=== PATIENT | female | born 1955 ===

== ENCOUNTER 2018-05-30 13:11 | Emergency (ER) | payer MEDICARE ==
[2018-05-30 13:11] VITALS: BMI 17.9
--- NOTE | 2018-05-30 13:43 | C.PDOC ---
History Of Present Illness 62 Y/O FEMALE PRESENTS TO ED WITH C/O RECURRENT, WORSENING L CP SINCE LAST NIGHT. PS 1ST EPISODE 1 MO AGO, RESOLVED. CURRENT EPISODE ONSET LAST NIGHT, MORE PROLONGED AND INTENSE THAN PRIOR. CP IMPROVED COMPARED TO LAST NIGHT BUT PERSISTENT. PATIENT ADMITS TO NAUSEA, VOMITING AND DIZZINESS, NAUSEA. HO AORTIC STENOSIS, S/P CATH 2015 DR ZEPEDA. EXAM MILD DIST NONTOXIC EXAM NEG MDM REPORT CATH 11/02 REVIEWED. UNSTABLE ANGINA W ABN EKG. VSS. LABS, ANTICOAG, ASA , CARDIOLOGY CONSULT, ADMIT Time Seen by Provider: 05/30/18 13:37 Chief Complaint (Nursing): Chest Pain History Per: Patient History/Exam Limitations: no limitations Onset/Duration Of Symptoms: Days Current Symptoms Are (Timing): Still Present Past Medical History Reviewed: Historical Data, Nursing Documentation, Vital Signs Vital Signs: Last Vital Signs Temp 98.5 F 05/30/18 13:18 Pulse 89 05/30/18 14:40 Resp 19 05/30/18 14:40 BP 120/81 05/30/18 14:40 Pulse Ox 99 05/30/18 15:44 - Medical History PMH: Anxiety (ABOUT PROCEDURE), Arthritis, Hypercholesterolemia, Hypothyroidism , Kidney Stones (PASSED NO SURGERY) Surgical History: No Surg Hx Family History: States: No Known Family Hx - Social History Hx Alcohol Use: No Hx Substance Use: No - Immunization History Hx Tetanus Toxoid Vaccination: No Hx Influenza Vaccination: No Hx Pneumococcal Vaccination: No Review Of Systems Constitutional: Negative for: Fever, Chills Cardiovascular: Positive for: Chest Pain Gastrointestinal: Positive for: Nausea, Vomiting Neurological: Positive for: Dizziness Physical Exam - Physical Exam Appears: Non-toxic, Other (In mild distress) Skin: Warm, Dry, No Rash Head: Atraumatic, Normacephalic Eye(s): bilateral: Normal Inspection Neck: Normal ROM, Supple Cardiovascular: Rhythm Regular Respiratory: Normal Breath Sounds, No Rales, No Rhonchi, No Wheezing Gastrointestinal/Abdominal: Soft, No Tenderness, No Guarding, No Rebound Extremity: No Pedal Edema, Capillary Refill (<2 seconds) Neurological/Psych: Oriented x3, Normal Speech ED Course And Treatment - Laboratory Results Result Diagrams: 05/30/18 13:56 05/30/18 13:56 ECG: Interpreted By Me ECG Rhythm: Sinus Rhythm ECG Interpretation: Abnormal Interpretation Of ECG: ST DEPRESSION I, AVL, V2-V6 Rate From EC (BPM) O2 Sat by Pulse Oximetry: 99 (RA) Pulse Ox Interpretation: Normal Progress - Re-Evaluation Re-evaluation Note: 05/30/18 13:51 D/W DR ZEPEDA, EKG REVIEWED. MILLINOX, ECHO, WILL CONSULT 05/30/18 14:[address] ZEPEDA REQUESTING ADMISSION TO Mary MARTINEZ 05/30/18 14:45 D/W DR Mary MARTINEZ, WILL ADMIT 05/30/18 14:50 EKG #2: CP RESOLVED. PERSIST ST DEP V4-6, I, AVL. VSS 05/30/18 15:14 D/W DR ZEPEDA, AWARE OF TROP. ICU EVAL. DOES NOT ADVISE ADDL MEDS @ THIS TIME 05/30/18 15:[address] Traci MARTINEZ C/F ICU 05/30/18 15:43 d/w dr traci martinez AWARE OF ER FINDINGS, ACCEPTS FOR ICU. - Data Reviewed Data Reviewed: Lab, Diagnostic imaging, EKG - Critical Care Citical Care: Excluding Proc Time Critical Care Time: 90 minutes - Continuity of Care Discussed pt. case with food consultant/specialty: Cardiology Medical Decision Making Medical Decision Making: REPORT CATH 11/02 REVIEWED. UNSTABLE ANGINA W ABN EKG. VSS. LABS, ANTICOAG, ASA , CARDIOLOGY CONSULT, ADMIT Disposition Counseled Patient/Family Regarding: Studies Performed, Diagnosis - Disposition Disposition: HOSPITALIZED Disposition Time: 14:46 Condition: STABLE - POA Present On Arrival: Poor Glycemic Control - Clinical Impression Clinical Impression: Unstable angina, Abnormal EKG, Aortic stenosis - Scribe Statement The provider has reviewed the documentation as recorded by the Tristin Llamas All medical record entries made by the Sadafibe were at my direction and personally dictated by me. I have reviewed the chart and agree that the record accurately reflects my personal performance of the history, physical exam, medical decision making, and the department course for this patient. I have also personally directed, reviewed, and agree with the discharge instructions and disposition. Decision To Admit - Pt Status Changed To: Hospital Disposition Of: Inpatient - Admit Certification Admit to Inpatient:: After my assessment, the patient will require hospitalization for at least two midnights. This is because of the severity of symptoms shown, intensity of services needed, and/or the medical risk in this patient being treated as an outpatient. - InPatient: Physician Admission Certification: I certify that this patient requires 2 or more midnights of care for the following reason:: SEE NOTE - . Bed Request Type: ICU Admitting Physician: Мария Martinez Patient Diagnosis: Unstable angina, Abnormal EKG, Aortic stenosis
[2018-05-30] MEDS ORDERED: Aspirin 325 mg EC Tablets PO STA (13:48)
[2018-05-30] MEDS ORDERED: Enoxaparin 40 mg Syringe SC STA (13:57)
[2018-05-30 14:11] LABS: BASO # 0.1 K/uL (0.0-0.2); BASO % 0.3 % (0.0-2.0); HEMOGLOBIN 14.1 g/dL (11.0-16.0); LYMPH # 2.7 K/uL (1.0-4.3); LYMPH % 15.1 % (20.0-40.0); MEAN CELL VOLUME 98.6 fL (81.0-99.0); MEAN CORPUSCULAR HEMOGLOBIN 33.6 pg (27.0-31.0); MEAN CORPUSCULAR HGB CONC 34.1 g/dL (33.0-37.0); MEAN PLATELET VOLUME 8.8 fL (7.2-11.7); MONO % 5.5 % (0.0-10.0); NEUT % 79.1 % (50.0-75.0); NRBC % 0.1 % (0.0-2.0); RBC 4.21 Mil/uL (3.80-5.20); RED CELL DISTRIBUTION WIDTH 14.2 % (11.5-14.5); WHITE BLOOD COUNT 17.7 K/uL (4.8-10.8)
[2018-05-30] MEDS ORDERED: Enoxaparin 60 mg Syringe ONE (14:12)
[2018-05-30 14:14] LABS: INR 1.1; PROTHROMBIN TIME 12.1 SECONDS (9.7-12.2)
[2018-05-30 14:27] LABS: ALB/GLOB RATIO 0.8 (1.0-2.1); ALBUMIN 4.2 g/dL (3.5-5.0); CALCIUM 9.5 mg/dl (8.6-10.4)
--- NOTE | 2018-05-30 14:36 | RAD ---
Date of service: 05/30/2018 PROCEDURE: CHEST RADIOGRAPH, 1 VIEW HISTORY: chest pain COMPARISON: None available. FINDINGS: LUNGS: The lungs are well inflated. There are diffuse increased streaky opacities in the lungs. No focal consolidation. There is bibasilar atelectasis. PLEURA: No pneumothorax or pleural fluid seen. CARDIOVASCULAR: Normal. OSSEOUS STRUCTURES: No significant abnormalities. VISUALIZED UPPER ABDOMEN: Normal. OTHER FINDINGS: None. IMPRESSION: No active pulmonary disease. Findings may represent atypical/ viral pneumonitis or interstitial disease.
[2018-05-30 14:41] VITALS: RESP 19
--- NOTE | 2018-05-30 15:56 | CP.PCM.CON ---
History of Present Illness - History of Present Illness History of Present Illness: 62 y/o female with pmx of Dm, CAd presents to [facility] with c/o chest pain. Patient's chest pain improved with nitroglycerin. Patient being followed with mechanical engineering director. Past Patient History - Past Medical History & Family History Past Medical History?: Yes - Past Social History Smoking Status: Never Smoked - CARDIAC Hx Hypercholesterolemia: Yes - PULMONARY Hx Respiratory Disorders: No - NEUROLOGICAL Hx Neurological Disorder: No - HEENT Hx HEENT Problems: Yes (GLASSES) Hx Cataracts: Yes - RENAL Hx Kidney Stones: Yes (PASSED NO SURGERY) - ENDOCRINE/METABOLIC Hx Hypothyroidism: Yes - HEMATOLOGICAL/ONCOLOGICAL Hx Blood Disorders: No - INTEGUMENTARY Hx Dermatological Problems: No - MUSCULOSKELETAL/RHEUMATOLOGICAL Hx Arthritis: Yes - GASTROINTESTINAL Hx Gastrointestinal Disorders: No - GENITOURINARY/GYNECOLOGICAL Hx Genitourinary Disorders: Yes Hx Hematuria: Yes Other/Comment: KIDNEY STONE - PSYCHIATRIC Hx Anxiety: Yes (ABOUT PROCEDURE) Hx Substance Use: No - SURGICAL HISTORY Hx Surgeries: Yes Other/Comment: OVARIAN CYSTECTOMY - ANESTHESIA Hx Anesthesia: Yes Hx Anesthesia Reactions: No Hx Malignant Hyperthermia: No Meds Allergies/Adverse Reactions: Allergies Allergy/AdvReac Type Severity Reaction Status Date / Time No Known Allergies Allergy Verified 05/30/18 13:21 - Medications Medications: Current Medications Nitroglycerin (Nitrostat Sl Tab) 0.4 mg SL Q5M PRN PRN Reason: CHEST PAIN Last Admin: 05/30/18 14:25 Dose: 0.4 mg Physical Exam - Head Exam Head Exam: ATRAUMATIC, NORMAL INSPECTION, NORMOCEPHALIC - Eye Exam Eye Exam: EOMI Pupil Exam: NORMAL ACCOMODATION - ENT Exam ENT Exam: Mucous Membranes Moist - Respiratory Exam Respiratory Exam: NORMAL BREATHING PATTERN - Cardiovascular Exam Cardiovascular Exam: REGULAR RHYTHM, +S1, +S2 - GI/Abdominal Exam GI & Abdominal Exam: Normal Bowel Sounds - Extremities Exam Extremities exam: Positive for: normal inspection - Neurological Exam Neurological exam: Alert, Oriented x3 - Skin Skin Exam: Normal Color Results - Vital Signs Recent Vital Signs: Last Vital Signs Temp 98.5 F 05/30/18 13:18 Pulse 89 05/30/18 14:40 Resp 19 05/30/18 14:40 BP 120/81 05/30/18 14:40 Pulse Ox 99 07/13/18 15:49 - Labs Result Diagrams: 05/30/18 13:56 05/30/18 13:56 Labs: Laboratory Results - last 24 hr 05/30/18 05/30/18 05/30/18 13:56 13:56 13:56 WBC 17.7 H RBC 4.21 Hgb 14.1 Hct 41.5 MCV 98.6 D MCH 33.6 H MCHC 34.1 RDW 14.2 Plt Count 314 MPV 8.8 Neut % (Auto) 79.1 H Lymph % (Auto) 15.1 L Osborne % (Auto) 5.5 Eos % (Auto) 0.0 Baso % (Auto) 0.3 Neut # (Auto) 14.0 H Lymph # (Auto) 2.7 Osborne # (Auto) 1.0 H Eos # (Auto) 0.0 Baso # (Auto) 0.1 PT 12.1 INR 1.1 APTT 33 Sodium 142 Potassium 5.5 H Chloride 100 Carbon Dioxide 27 Anion Gap 21 H BUN 35 H Creatinine 1.9 H Est GFR ( Amer) 33 Est GFR (Non-Af Amer) 27 Random Glucose 296 H Calcium 9.5 Total Bilirubin 0.9 AST 828 H ALT 135 H Alkaline Phosphatase 255 H Troponin I 207.0000 H* Total Protein 9.2 H Albumin 4.2 Globulin 5.0 H Albumin/Globulin Ratio 0.8 L Lipase 87 Blood Type Antibody Screen 05/30/18 13:56 WBC RBC Hgb Hct MCV MCH MCHC RDW Plt Count MPV Neut % (Auto) Lymph % (Auto) Osborne % (Auto) Eos % (Auto) Baso % (Auto) Neut # (Auto) Lymph # (Auto) Osborne # (Auto) Eos # (Auto) Baso # (Auto) PT INR APTT Sodium Potassium Chloride Carbon Dioxide Anion Gap BUN Creatinine Est GFR ( Amer) Est GFR (Non-Af Amer) Random Glucose Calcium Total Bilirubin AST ALT Alkaline Phosphatase Troponin I Total Protein Albumin Globulin Albumin/Globulin Ratio Lipase Blood Type A POSITIVE Antibody Screen Negative Assessment & Plan - Assessment and Plan (Free Text) Assessment: Patient with unstable angina: patient will benefit from urgent cardiology eval and possible early PCI -start DAPT, lovenox and statin -d/w ER physician, patient ot get PCI at [facility] [place] - Date & Time Date: 05/30/18 Time: 17:00
[2018-05-30] MEDS ORDERED: (Novolin R) Insulin Human Regular 100 units/ml vial IV STA (16:10)
[2018-05-30] MEDS ORDERED: (Novolin R) Insulin Human Regular 100 units/ml vial ONE (16:16)
[2018-05-30 17:07] VITALS: BP 113/70; PULSE 91; O2SAT 96
[2018-05-30 17:08] VITALS: TEMP 98.2
--- NOTE | 2018-05-30 17:49 | CP.PCM.CON ---
History of Present Illness - History of Present Illness History of Present Illness: Contacted by Dr Manrique at [phone] regarding patient who presents with unstable angina ST segment depression v2-v6. patient has previous history of and moderate CAD , did not have AVR as she insisted she was asymptomatic. Patient's pain reportedly improved with nitroglycerin. recommendation given for lovenox. Troponin reported to be 200, I recommended ICU eval while arrangements are made for urgent transfer to tertiary care Hospital. [place] [facility] [place] label[place] for [place] and intervention. Echocardiogram reveals mild posterobasal hypokinesis , severe calcific , and severe mitral regurgitation. Patient likely will need valve surgery. (AVR/MVR). Past Patient History - Past Medical History & Family History Past Medical History?: Yes - Past Social History Smoking Status: Never Smoked - CARDIAC Hx Hypercholesterolemia: Yes - PULMONARY Hx Respiratory Disorders: No - NEUROLOGICAL Hx Neurological Disorder: No - HEENT Hx HEENT Problems: Yes (GLASSES) Hx Cataracts: Yes - RENAL Hx Kidney Stones: Yes (PASSED NO SURGERY) - ENDOCRINE/METABOLIC Hx Hypothyroidism: Yes - HEMATOLOGICAL/ONCOLOGICAL Hx Blood Disorders: No - INTEGUMENTARY Hx Dermatological Problems: No - MUSCULOSKELETAL/RHEUMATOLOGICAL Hx Arthritis: Yes - GASTROINTESTINAL Hx Gastrointestinal Disorders: No - GENITOURINARY/GYNECOLOGICAL Hx Genitourinary Disorders: Yes Hx Hematuria: Yes Other/Comment: KIDNEY STONE - PSYCHIATRIC Hx Anxiety: Yes (ABOUT PROCEDURE) Hx Substance Use: No - SURGICAL HISTORY Hx Surgeries: Yes Other/Comment: OVARIAN CYSTECTOMY - ANESTHESIA Hx Anesthesia: Yes Hx Anesthesia Reactions: No Hx Malignant Hyperthermia: No Meds Allergies/Adverse Reactions: Allergies Allergy/AdvReac Type Severity Reaction Status Date / Time No Known Allergies Allergy Verified 05/30/18 13:21 - Medications Medications: Current Medications Nitroglycerin (Nitrostat Sl Tab) 0.4 mg SL Q5M PRN PRN Reason: CHEST PAIN Last Admin: 05/30/18 14:25 Dose: 0.4 mg Results - Vital Signs Recent Vital Signs: Last Vital Signs Temp 98.2 F 05/30/18 17:06 Pulse 91 H 05/30/18 17:06 Resp 19 05/30/18 17:06 BP 113/70 05/30/18 17:06 Pulse Ox 96 05/30/18 17:06 - Labs Result Diagrams: 05/30/18 13:56 05/30/18 13:56 Labs: Laboratory Results - last 24 hr 05/30/18 05/30/18 05/30/18 13:56 13:56 13:56 WBC 17.7 H RBC 4.21 Hgb 14.1 Hct 41.5 MCV 98.6 D MCH 33.6 H MCHC 34.1 RDW 14.2 Plt Count 314 MPV 8.8 Neut % (Auto) 79.1 H Lymph % (Auto) 15.1 L Turner % (Auto) 5.5 Eos % (Auto) 0.0 Baso % (Auto) 0.3 Neut # (Auto) 14.0 H Lymph # (Auto) 2.7 Turner # (Auto) 1.0 H Eos # (Auto) 0.0 Baso # (Auto) 0.1 PT 12.1 INR 1.1 APTT 33 Sodium 142 Potassium 5.5 H Chloride 100 Carbon Dioxide 27 Anion Gap 21 H BUN 35 H Creatinine 1.9 H Est GFR ( Amer) 33 Est GFR (Non-Af Amer) 27 POC Glucose (mg/dL) Random Glucose 296 H Calcium 9.5 Total Bilirubin 0.9 AST 828 H ALT 135 H Alkaline Phosphatase 255 H Troponin I 207.0000 H* Total Protein 9.2 H Albumin 4.2 Globulin 5.0 H Albumin/Globulin Ratio 0.8 L Lipase 87 Blood Type Antibody Screen 05/30/18 05/30/18 05/30/18 13:56 16:01 17:28 WBC RBC Hgb Hct MCV MCH MCHC RDW Plt Count MPV Neut % (Auto) Lymph % (Auto) Turner % (Auto) Eos % (Auto) Baso % (Auto) Neut # (Auto) Lymph # (Auto) Turner # (Auto) Eos # (Auto) Baso # (Auto) PT INR APTT Sodium Potassium Chloride Carbon Dioxide Anion Gap BUN Creatinine Est GFR ( Amer) Est GFR (Non-Af Amer) POC Glucose (mg/dL) 314 H 270 H Random Glucose Calcium Total Bilirubin AST ALT Alkaline Phosphatase Troponin I Total Protein Albumin Globulin Albumin/Globulin Ratio Lipase Blood Type A POSITIVE Antibody Screen Negative
[2018-05-30] MEDS ORDERED: INSULIN LISPRO SC PRN (19:51)
[2018-05-31] MEDS ORDERED: TOFACITINIB CITRATE PO SCH (10:00)
[2018-05-31] MEDS ORDERED: Levothyroxine 50 MCG TAB PO SCH (10:00)
[2018-05-31] MEDS ORDERED: INSULIN DEGLUDEC 26 UNIT SC SCH (10:00)
--- NOTE | 2018-06-01 13:37 | CARD ---
APPROVED REPORT Date of service: 05/30/2018 EXAM: Two-dimensional and M-mode echocardiogram with Doppler and color Doppler. Other Information Quality : GoodRhythm : INDICATION Abnormal EKG/Arrhythmia Aortic Valve Disease Chest Pain 2D DIMENSIONS IVSd1.0 (0.7-1.1cm)LVDd3.3 (3.9-5.9cm) LVOT Diameter1.7 (1.8-2.4cm)PWd1.0 (0.7-1.1cm) LVDs2.6 (2.5-4.0cm)FS (%) 22.9 % PWs2.5 (0.8-1.2cm)LVEF (%)65.0 (>50%) M-Mode DIMENSIONS Left Atrium (MM)3.54 (2.5-4.0cm)IVSd0.94 (0.7-1.1cm) Aortic Root2.36 (2.2-3.7cm)LVDd4.94 (4.0-5.6cm) Aortic Cusp Exc.0.96 (1.5-2.0cm)PWd0.75 (0.7-1.1cm) FS (%) 36 %LVDs3.18 (2.0-3.8cm) LVEF (%)65 (>50%) Aortic Valve AoV Peak Crmqacul880.6cm/sAoV VTI52.2cmAO Peak GR.35mmHg LVOT Peak Obrayegj11.8cm/sLVOT VTI15.03cmAO Mean GR.20mmHg BASIA (VMAX)0.96rb3TCV (VTI)0.17zr0TW P 1/2 Juyd390oj Mitral Valve MV E Anwkxgjq889.9cm/sMV A Qzyhuabm68.8cm/sE/A ratio2.0 TDI E/Lateral E'0.0E/Medial E'0.0 Tricuspid Valve TR Peak Bzofmkwf963lo/sTR Peak Gr.27mcQbMPFV50kkTk LEFT VENTRICLE The left ventricle is normal size. There is normal left ventricular wall thickness. The Ejection Fraction is 55-60%. There is normal LV segmental wall motion. Transmitral Doppler flow pattern is Grade II-pseudonormal filling dynamics. The left atrial pressure is severely elevated. RIGHT VENTRICLE The right ventricle is normal size. The right ventricular systolic function is normal. ATRIA The left atrium size is normal. The right atrium size is normal. The interatrial septum is intact with no evidence for an atrial septal defect. AORTIC VALVE The aortic valve is moderately to severely calcified. The aortic valve is probably trileaflet. There is mild to moderate aortic regurgitation. There is severe valvular aortic stenosis. Calculated aortic valve area is 0.6 cm2 with maximum pressure gradient of 37 mmHg and mean pressure gradient of 22 mmHg. MITRAL VALVE The mitral valve leaflets are calcified. Mitral regurgitation is severe. TRICUSPID VALVE The tricuspid valve is normal in structure. There is moderate tricuspid regurgitation. Right ventricular systolic pressure is estimated at 50 mmHg. There is moderate pulmonary hypertension. PULMONIC VALVE The pulmonary valve is normal in structure. There is moderate pulmonic valvular regurgitation. GREAT VESSELS The aortic root is normal size. The aortic root displays mild to moderate sclerocalcific changes of the aortic root. The IVC is normal in size and collapses >50% with inspiration. PERICARDIAL EFFUSION There is no pericardial effusion. <Conclusion> The left ventricle is normal size. There is normal left ventricular wall thickness. The Ejection Fraction is 55-60%. Transmitral Doppler flow pattern is Grade II-pseudonormal filling dynamics. The left atrial pressure is severely elevated. The aortic valve is moderately to severely calcified. The aortic valve is probably trileaflet. There is mild to moderate aortic regurgitation. There is severe valvular aortic stenosis. Calculated aortic valve area is 0.6 cm2 with maximum pressure gradient of 37 mmHg and mean pressure gradient of 22 mmHg. The mitral valve leaflets are calcified. Mitral regurgitation is severe. There is moderate tricuspid regurgitation. Right ventricular systolic pressure is estimated at 50 mmHg. There is moderate pulmonary hypertension. The aortic root is normal size. The aortic root displays mild to moderate sclerocalcific changes of the aortic root.
--- NOTE | 2018-06-03 07:01 | CARD ---
APPROVED REPORT Date of service: 05/30/2018 EKG Measurement Heart [id number] <Conclusion> Normal sinus rhythm ST & T wave abnormality, consider lateral ischemia Abnormal ECG
--- NOTE | 2018-06-03 07:05 | CARD ---
APPROVED REPORT Date of service: 05/30/2018 EKG Measurement Heart [id number] <Conclusion> Normal sinus rhythm Posterior infarct, possibly acute ST & T wave abnormality, consider lateral ischemia ACUTE NC / STEMI Abnormal ECG
== END 2018-05-30 17:50 | disposition short-term general hospital (02) ==
LOC: C.ER 13:11 → C.9E 14:47 → UNDOADMIN 14:47 → C.ER 17:50
DX: I20.0 Unstable angina (principal); R94.31 Abnormal electrocardiogram [ECG] [EKG]; I35.0 Nonrheumatic aortic (valve) stenosis
CPT/HCPCS: 71045; 80053; 82948; 83690; 84484; 85025; 85610; 85730; 86850; 86900; 93005; 93306; 96372; 96374; 99285; J1650